=== PATIENT | female | born 1970 | race Caucasian/White ===

== ENCOUNTER → 2020-05-25 | Outpatient (CLI) | payer BC ==
[~2020-05-25] MED LIST: BUPROPION HCL75 MG PO; CELEBREX200 MG PO; ELIQUIS2.5 MG PO; FLONASE 0.05% N16 GM; IBUPROFEN800 MG PO; KEFLEX500 MG PO; LISINOPRIL-HCT1 EACH PO; NEURONTIN 300300 MG PO; NORCO 10-325 T1 EACH PO; PREVACID30 MG PO; PROBIOTIC1 EACH PO; RANITIDINE HCL300 MG PO; SYNTHROID25 MCG PO; VITAMIN C 500500 MG PO; VITAMIN D PO; VITAMIN D250000 UNIT PO; VOLTAREN100 GM TP; WOMEN'S MULTI200 MCG PO; [UNRECOGNIZED DRUG - OTHER] PO
== END ==
LOC: KOH-I 15:43
DX: L40.50 Arthropathic psoriasis, unspecified (principal)
CPT/HCPCS: 73130; 73630

== ENCOUNTER → 2021-02-08 | Outpatient (CLI) | payer BC | LOC: MAMO 01-29 15:00 | DX: Z12.31 Encounter for screening mammogram for malignant neoplasm of breast (principal) | CPT/HCPCS: 77063; 77067 ==